=== PATIENT | female | born 1940 | race Caucasian/White ===

== ENCOUNTER 2021-09-22 08:34 | Emergency (ER) | payer MEDICARE, OTHER, SELFPAY ==
--- NOTE | ~2021-09-22 | XR_ITS ---
EXAMINATION: XR wrist LT min 3V DATE: 09/22/2021 08:54 INDICATION: Left hand pain and swelling, initial encounter TECHNIQUE: Posteroanterior, ulnar deviation, oblique, and lateral views of the left wrist were obtain ed. COMPARISON: None available FINDINGS: There is an acute, traumatic, closed, oblique, intra-articular fracture in the dorsal aspec t of the distal radius. Scapholunate dissociation is noted. There is osteoarthritis of the triscaphe joint without definite scaphoid fracture identified. A moderate amount of soft tissue swelling is see n in the lateral wrist. 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 IMPRESSION: 1. Nondisplaced intra-articular fracture of the distal radius. Reviewed, dictated and finalized at location A.
--- NOTE | 2021-09-22 08:37 | ED.UPPEXIN ---
HPI - Extremity Injury (Upper) General Chief Complaint: Extremity Injury, Upper Stated Complaint: left hand/wrist Time Seen by Provider: 09/22/21 08:37 Source: patient and RN notes reviewed History of Present Illness HPI narrative: Patient is a 80-year-old female who presents the urgent care with complaints of left hand and wrist pain. Patient states that she was at a wedding last night and fell dancing. Patient denies hitting her head or any loss of consciousness. Denies of any other wounds from the fall. Patient has been icing the wrist since last night. No other acute complaints. No acute distress noted. Patient aware of the plan of care. Some parts of this dictation were generated by voice recognition software and may contain typographical and/or grammatical inaccuracies. Related Data Home Medications Medication Instructions Recorded Confirmed exemestane 25 mg PO DAILY 09/22/21 09/22/21 Allergies Allergy/AdvReac Type Severity Reaction Status Date / Time No Known Allergies Allergy Verified 09/22/21 08:49 Review of Systems Review of Systems: CONSTITUTIONAL: Denies fever, chills, or sweats. EYES: Denies visual changes, redness, or discharge. ENT: Denies rhinorrhea, congestion, sore throat, or otalgia. CARDIOVASCULAR: Denies chest pain, palpitations, or edema. RESPIRATORY: Denies cough or dyspnea. GASTROINTESTINAL: Denies abdominal pain, nausea, vomiting, or diarrhea. GENITOURINARY: Denies dysuria or hematuria. SKIN: Denies rash or itching. MUSCULOSKELETAL: Reports of injury and pain to the left wrist NEUROLOGIC: Denies headache, numbness, or weakness. All other systems reviewed are negative, except as documented in HPI. PMFSH Comments At the time of my signature, I reviewed and agree with the nursing past medical, surgical, social, and family history. There is no relevant family history pertinent to the patient complaint. Exam Narrative: GENERAL: This is a well-nourished, well-developed patient, in no apparent distress. HEAD: normocephalic, atraumatic. EYES: PERRL. Sclera clear/white. Vision is grossly intact. EARS: External ears normal. NOSE: External nose normal with no obvious nasal discharge, nares without redness, no rhinorrhea. THROAT: Mucous membranes moist, posterior pharynx clear. NECK: Neck supple, CARDIOVASCULAR: Regular rate and rhythm RESPIRATORY: Clear to auscultation. Breath sounds equal bilaterally. No wheezes, rales, or rhonchi. SKIN: warm, intact with no suspicious lesions or rash, good texture and turgor. NEURO: awake, alert, and oriented to person, place and time. There were no obvious focal neurologic abnormalities. EXTREMITIES: Positive left radial pulse with capillary refill less than 2 seconds. Range of motion not tested due to obvious deformity. Deformity noted to the left distal radius with mild tenderness. Course Course Level of Care: Express Care Visit Vital Signs Vital signs: Vital Signs Temperature 99.8 F H 09/22/21 08:44 Pulse Rate 82 09/22/21 08:44 Respiratory Rate 14 09/22/21 08:44 Blood Pressure 190/95 H 09/22/21 08:44 Pulse Oximetry 100 09/22/21 08:44 Temperature 99.8 F H 09/22/21 08:44 Pulse Rate 82 09/22/21 08:44 Respiratory Rate 14 09/22/21 08:44 Blood Pressure 190/95 H 09/22/21 08:44 Pulse Oximetry 100 09/22/21 08:44 Reviewed-patient is informed that they may have pre-hypertension or hypertension based on a blood pressure reading in the department. I recommend the patient call the primary care provider listed on their discharge instructions or a physician of their choice this week to arrange follow-up for further evaluation of possible pre-hypertension or hypertension. Procedures Orthopedic Splinting/Casting Injury #1: Side: left Upper Extremity Injury Location: wrist OCL: volar Pre-Procedure Neuro Vascular Exam: normal Post-Procedure Neuro Vascular Exam: normal Other Orthopedic Equipment
[2021-09-22 08:44] VITALS: BP 190/95; PULSE 82; RESP 14; TEMP 37.7; O2SAT 100
== END 2021-09-22 11:15 | disposition home or self-care (01) ==
PROVIDERS: Emergency Provider Nurse Practitioner Family
DX: S52.572A Other intraarticular fracture of lower end of left radius, initial encounter for closed fracture (principal); W19.XXXA Unspecified fall, initial encounter; Y93.41 Activity, dancing; Z85.3 Personal history of malignant neoplasm of breast
CPT/HCPCS: 29125; 73110; 99214; A4565; G0463